=== PATIENT | male | born 1960 | race Caucasian/White ===

== ENCOUNTER 2020-10-09 00:35 | Outpatient (CLI) | payer OTHER, SELFPAY ==
[2020-10-09 19:42] LABS: SARS-CoV-2 RNA PCR Negative
== END 2020-10-09 00:36 | disposition home or self-care (01) ==
LOC: ANHCOVIDDT 00:36
PROVIDERS: PCP Internal Medicine; Visit Provider Internal Medicine Gastroenterology
DX: Z01.812 Encounter for preprocedural laboratory examination (principal); Z20.822 Contact with and (suspected) exposure to COVID-19
CPT/HCPCS: C9803; U0003

== ENCOUNTER 2020-10-12 00:13 | Day surgery (SDC) | payer OTHER, SELFPAY ==
[2020-09-26 10:29] VITALS: BMI 32.5
[2020-10-12 06:23] VITALS: BP 128/71; PULSE 52; RESP 20; TEMP 36.2; O2SAT 99
[2020-10-12] MEDS: LACTATED RINGERS 1,000 ML 150 ML IV CONT (06:34)
--- NOTE | 2020-10-12 07:19 | WPDANESEPPF ---
Anes - Initial Pre Proc Eval Procedure: Operation Date: 10/12/20 07:30 Proposed Procedures p Screening Colonoscopy - Victor Manuel Chacon MD Date/Time: 10/12/20 07:19 Surgeon: Victor Manuel Chacon MD Pre Op Diagnosis: neoplasm screening Patient Data Age: 60 Gender: M Height: 5 ft 11 in Weight: 106.3 kg Last Vital Signs Temp 97.1 F L 10/12/20 06:23 Pulse 52 L 10/12/20 06:23 Resp 20 10/12/20 06:23 BP 128/71 10/12/20 06:23 Pulse Ox 99 10/12/20 06:23 Allergies Allergy/AdvReac Type Severity Reaction Status Date / Time No Known Allergies Allergy Unverified 10/12/20 06:21 Home Medications Medication Instructions Recorded Confirmed Type azelastine 137 mcg (0.1 %) nasal 2 spray INTRANASAL Q12H PRN ml 07/25/20 09/26/20 History spray aerosol fluticasone propionate 50 2 spray INTRANASAL DAILY PRN 07/25/20 09/26/20 History mcg/actuation nasal spray,suspension irbesartan 150 mg tablet 150 mg PO DAILY 07/25/20 09/26/20 History levothyroxine 125 mcg tablet 125 mcg PO DAILY 07/25/20 09/26/20 History cetirizine 10 mg PO DAILY 09/26/20 09/26/20 History multivitamin [One A Day Vitamin] 1 tablet PO DAILY 09/26/20 09/26/20 History Patient hx anesthesia problems: none Family hx anesthesia problems: none PMFSH Past Medical History Medical History (Updated 10/12/20 @ 07:19 by Robert Calvert MD) Asthma GERD (gastroesophageal reflux disease) HTN (hypertension) Hypothyroid Obesity (BMI 35.0-39.9 without comorbidity) TRIINTY on CPAP Surgical History Surgical History (Updated 07/25/20 @ 07:59 by Nan Camejo) History of surgery on arm Left arm Family History Family History (Updated 07/25/20 @ 08:00 by Nan Camejo) Sibling Family history of migraine headaches Hypertension Mother Cancer Father Cancer Grandparent Cancer Other Diabetes mellitus Family history of malignant neoplasm Social History Social History (Updated 07/25/20 @ 08:01 by Nan Camejo) Smoking status: Never smoker Smoking end date: 10/05/76 Alcohol intake: current Drinks per week: 4 Alcohol use details: SHOTS Substance use: never Substance use type: does not use Living arrangements: with family Spiritual care concerns: No Anes - Eval Final PreProcedure Day of Procedure 10/12/20 07:19 Patient weight: obese Heart: regular rate and rhythm Lungs: clear to auscultation Airway: Mallampati scale class II Neurological: alert and oriented Last oral intake: >/= 8 hours ASA classification: III Emergent: no Anesthetic plan: proceed Anesthesia type and monitoring: general GIVS and standard monitoring Informed Consent: The patient's anesthetic plan and its attendant risks and benefits were discussed with the patient/family/POA. Questions were solicited and answers provided to the satisfaction of the patient/family/POA.
--- NOTE | 2020-10-12 07:24 | PM.HPGS ---
History of Present Illness History of Present Illness Consent: Risks, benefits, and alternatives have been discussed and questions answered. Patient agrees to proceed with procedure. Chief complaint: neoplasm screening Narrative: Luis Felipe Garcias is a 60 year old male here for first screening colonoscopy Review of Systems Constitutional: Constitutional: Denies headache(s) and Denies weakness Eyes: Eyes: Denies blurry vision ENT: Reports Normal hearing present, Denies headache(s) and Denies neck pain Cardiovascular: Cardiovascular: Denies chest pain and Denies dyspnea Respiratory: Respiratory: Denies dyspnea Gastrointestinal: Gastrointestinal: Reports no additional gastrointestinal complaints Genitourinary: Genitourinary: Denies dysuria Musculoskeletal: Musculoskeletal: Denies neck pain Integumentary/Breasts: Skin/Breast: Denies dry skin Neurologic: Reports Normal hearing present, Denies headache(s) and Denies weakness Psychiatric: Psychiatric: Denies anxiety Endocrine: Endocrine: Denies change in body appearance Hematologic/Lymphatic: Hematologic/Lymphatic: Denies easy bleeding Allergic/Immunologic: Allergic/Immunologic: Denies urticaria PMFSH Past Medical History Medical History (Updated 10/12/20 @ 07:19 by Robert Calvert MD) Asthma GERD (gastroesophageal reflux disease) HTN (hypertension) Hypothyroid Obesity (BMI 35.0-39.9 without comorbidity) TRINITY on CPAP Surgical History Surgical History (Updated 07/25/20 @ 07:59 by Nan Camejo) History of surgery on arm Left arm Family History Family History (Updated 07/25/20 @ 08:00 by Nan Camejo) Sibling Family history of migraine headaches Hypertension Mother Cancer Father Cancer Grandparent Cancer Other Diabetes mellitus Family history of malignant neoplasm Social History Social History (Updated 07/25/20 @ 08:01 by Nan Camejo) Smoking status: Never smoker Smoking end date: 10/05/76 Alcohol intake: current Drinks per week: 4 Alcohol use details: SHOTS Substance use: never Substance use type: does not use Living arrangements: with family Spiritual care concerns: No Meds Home Medications and Allergies Home Medications Medication Instructions Recorded Confirmed Type azelastine 137 mcg (0.1 %) nasal 2 spray INTRANASAL Q12H PRN ml 07/25/20 09/26/20 History spray aerosol fluticasone propionate 50 2 spray INTRANASAL DAILY PRN 07/25/20 09/26/20 History mcg/actuation nasal spray,suspension irbesartan 150 mg tablet 150 mg PO DAILY 07/25/20 09/26/20 History levothyroxine 125 mcg tablet 125 mcg PO DAILY 07/25/20 09/26/20 History cetirizine 10 mg PO DAILY 09/26/20 09/26/20 History multivitamin [One A Day Vitamin] 1 tablet PO DAILY 09/26/20 09/26/20 History Allergies Allergy/AdvReac Type Severity Reaction Status Date / Time No Known Allergies Allergy Unverified 10/12/20 06:21 Vital Signs Vital Signs - 24 hr 10/12/20 06:23 Temperature 97.1 F L Pulse Rate 52 L Respiratory Rate 20 Blood Pressure 128/71 Pulse Oximetry 99 Exam Const: General: comfortable and no acute distress HENMT: General nose exam: Normal nares present Eyes: General: appearance normal, both eyes and all related structures Neck: Neck: no JVD Resp: Auscultation: clear to auscultation bilaterally Cardio: Rate: regular rate Rhythm: regular rhythm GI: Inspection: non-distended GI Palp: Yes Soft to palpation Skin: General skin exam: normal color Neuro: General: gait normal Speech: normal speech Extrem: General: normal to inspection Psych: Mental Status: mental status grossly normal Assessment and Plan Assessment and plan (1) Screening for colon cancer: Code(s): Z12.11 - Encounter for screening for malignant neoplasm of colon Status: Acute Assessment and Plan: will proceed with colonoscopy
[2020-10-12 07:42] VITALS: BP 110/66; PULSE 55; RESP 22; O2SAT 98
[2020-10-12 07:52] VITALS: BP 115/69; PULSE 57; RESP 20; O2SAT 97
[2020-10-12 08:02] VITALS: BP 125/77; PULSE 52; RESP 18; O2SAT 100
== END 2020-10-12 08:10 | disposition home or self-care (01) ==
PROVIDERS: PCP Internal Medicine; Visit Provider Internal Medicine Gastroenterology
PROC: 0DJD8ZZ Inspection of Lower Intestinal Tract, Via Natural or Artificial Opening Endoscopic (ICD-10-PCS; CPT 45378; principal; 2020-10-12 07:30)
DX: Z12.11 Encounter for screening for malignant neoplasm of colon (principal); D12.0 Benign neoplasm of cecum; K57.30 Diverticulosis of large intestine without perforation or abscess without bleeding; K64.8 Other hemorrhoids; J45.909 Unspecified asthma, uncomplicated; K21.9 Gastro-esophageal reflux disease without esophagitis; I10 Essential (primary) hypertension; E03.9 Hypothyroidism, unspecified; G47.33 Obstructive sleep apnea (adult) (pediatric); E66.9 Obesity, unspecified; Z68.32 Body mass index [BMI] 32.0-32.9, adult
CPT/HCPCS: 45385; 88305; C9803; J2704; J7120; U0003

== ENCOUNTER 2023-06-09 08:07 | Outpatient (CLI) | payer OTHER, MEDICARE, SELFPAY ==
[2023-06-09 20:06] LABS: Alanine Aminotransferase 40 U/L (6-50); Albumin Level 4.2 g/dL (3.5-5.1); Alkaline Phosphatase 57 U/L (38-126); Anion Gap 4 mmol/L (8-16); Aspartate Amino Transferase 48 U/L (17-59); Bilirubin,Total 0.6 mg/dL (0.2-1.3); Blood Urea Nitrogen 17 mg/dL (9-20); Calcium 9.1 mg/dL (8.4-10.2); Carbon Dioxide 32 mmol/L (22-30); Chloride 101 mmol/L (98-107); Cholesterol 181 mg/dL (0-200); Estimated Glomerular Filt Rate > 60; Glucose 88 mg/dL (65-110); HDL Direct 43 mg/dL; Potassium 3.8 mmol/L (3.4-5.0); Sodium 137 mmol/L (137-145); Triglycerides 144 mg/dL (<150)
[2023-06-09 20:17] LABS: LDL Cholesterol Direct 103 mg/dL
== END 2023-06-09 08:08 | disposition home or self-care (01) ==
PROVIDERS: PCP Internal Medicine; Visit Provider Nurse Practitioner
DX: E03.9 Hypothyroidism, unspecified (principal); Z13.220 Encounter for screening for lipoid disorders; I10 Essential (primary) hypertension
CPT/HCPCS: 36415; 80053; 80061; 84443

== ENCOUNTER 2023-12-09 08:06 | Outpatient (CLI) | payer MEDICARE, SELFPAY ==
[2023-12-09 15:23] LABS: Kit Draw Collected
== END 2023-12-09 08:07 | disposition home or self-care (01) ==
LOC: ANHGOSHLAB 08:07
PROVIDERS: PCP Internal Medicine; Visit Provider Clinical Nurse Specialist
DX: Z12.5 Encounter for screening for malignant neoplasm of prostate (principal); I10 Essential (primary) hypertension; E03.9 Hypothyroidism, unspecified; Z13.228 Encounter for screening for other metabolic disorders
CPT/HCPCS: 36415

== ENCOUNTER 2023-12-28 08:59 | Outpatient (CLI) | payer MEDICARE, OTHER, SELFPAY ==
--- NOTE | 2023-12-28 09:22 | ECHO_ITS ---
Patient Info Name: Luis Felipe Garcias Age: 63 years : 1960 Gender: Male Ht: 68 in Wt: 240 lbs BSA: 2.33 m2 HR: 60 bpm BP: 138 / 79 mmHg Technical Quality: Fair Exam Date: 12/28/2023 9:24 AM Exam Location: [facility] Patient Status: Outpatient Admit Date: 12/28/2023 Staff Ordering Physician: Valeria Warren [employer] Architect: Mikayla Victoria RDCS Attending Provider: Valeria Warren Referring Physician: Briana IRAHETA; Exam Type: CA echo doppler color flow Study Info Indications I10 - Essential (primary) hypertension Complete two-dimensional, color flow and Doppler transthoracic echocardiogram is performed. Summary 1. Complete two-dimensional, color flow and Doppler transthoracic echocardiogram is performed. 2. Left ventricular chamber dimension is normal. 3. Left ventricular systolic function is normal, estimated at 60-65%. 4. The left ventricular diastolic function is grade I diastolic dysfunction. 5. E/e' 7 is not elevated. 6. No pulmonary hypertension, estimated pulmonary arterial systolic pressure is 21 mmHg. Left Ventricle E/e' 7 is not elevated. Left ventricular chamber dimension is normal. Left ventricular systolic function is normal, estimated at 60-65%. The left ventricular diastolic function is grade I diastolic dysfunction. Right Ventricle Right ventricular chamber dimension is normal. Right ventricular systolic function is normal. Left Atria Left atrial chamber dimension is normal. Right Atria Right atrial chamber dimension is normal. Aortic Valve The aortic valve is trileaflet. There is no aortic valve stenosis. There is no aortic valve regurgitation. Pulmonic Valve There is no pulmonic regurgitation. Mitral Valve There is no mitral valve stenosis. There is no mitral valve regurgitation. Tricuspid Valve There is no tricuspid valve regurgitation. No pulmonary hypertension, estimated pulmonary arterial systolic pressure is 21 mmHg. Pericardium/Pleural There is no pericardial effusion. Inferior Vena Cava Normal inferior vena cava with >50% collapse upon inspiration consistent with normal right atrial pressure, 5 mmHg. Aorta The aortic root size at the sinus of Valsalva is normal. Left Ventricular Outflow Tract Name Value Normal LVOT 2D LVOT Diameter 2.0 cm LVOT Doppler LVOT Peak Gradient 5 mmHg LVOT Mean Gradient 3 mmHg LVOT VTI 23 cm LVOT VTI/AV VTI Ratio 0.8 LVOT Stroke Volume 72 ml LVOT CO 4.4 l/min LVOT CI 1.9 l/min/m2 Pulmonic Valve Name Value Normal RVOT Doppler RVOT Peak Gradient 4 mmHg PV Doppler PV Peak Gradient 16 mmHg Mitral Valve
== END 2023-12-28 09:00 | disposition home or self-care (01) ==
LOC: ANHCARD 09:00
PROVIDERS: PCP Internal Medicine; Visit Provider Clinical Nurse Specialist
DX: I10 Essential (primary) hypertension (principal)
CPT/HCPCS: 93306

== ENCOUNTER 2024-01-01 12:08 | Emergency (ER) | payer MEDICARE, OTHER, SELFPAY ==
[2024-01-01 12:16] VITALS: BP 144/89; PULSE 61; RESP 16; TEMP 37.2; O2SAT 100
--- NOTE | 2024-01-01 12:29 | ED.GENADULT ---
HPI - General Adult General Chief complaint: Extremity Injury, Lower Stated complaint: left knee pain Time Seen by Provider: 01/01/24 12:29 Source: patient, RN notes reviewed and old records reviewed Mode of arrival: ambulatory Limitations: no limitations History of Present Illness HPI narrative: 63-year-old male to [facility] with complaint left knee pain worse with movement or weight-bearing 2 days. Patient endorses he was squatting and chopping wood 2 days ago believes he may have injured knee when attempting to stand. patient denies acute pain at that time; reports pain began through the night and kept him from sleeping. Patient denies any prior injury or surgery. Patient been treating at home with ice and knee brace with some relief. Patient able to ambulate with slow but steady gait. Patient denies numbness, pain, swelling or tingling to left lower leg/ankle/foot. Related Data Home Medications Medication Instructions Recorded Confirmed cetirizine 10 mg tablet 10 mg PO DAILY 09/26/20 01/01/24 multivitamin 1 tablet PO DAILY 09/26/20 01/01/24 omega-3 fatty acids 1,000 mg 1,000 mg PO DAILY 01/22/21 01/01/24 capsule (Fish Oil Concentrate) hydroxychloroquine 100 mg tablet 200 mg PO BID 12/10/22 01/01/24 Allergies Allergy/AdvReac Type Severity Reaction Status Date / Time No Known Allergies Allergy Verified 01/01/24 12:17 Review of Systems Review of Systems: All systems reviewed & are unremarkable except as noted in HPI and below Constitutional: Constitutional: Reports as per HPI, Denies fever(s) and Denies weakness Eyes: Eyes: Reports no additional eye complaints ENT: Reports system reviewed and no additional complaints, except as documented Cardiovascular: Cardiovascular: Reports no additional cardiovascular complaints, Denies chest pain and Denies dyspnea Respiratory: Respiratory: Reports no additional respiratory complaints, Denies cough and Denies dyspnea Musculoskeletal: Musculoskeletal: Reports as per HPI, Reports arthralgias ( Left knee), Reports limited range of motion ( left knee), Denies muscle weakness, Denies numbness and Denies tingling Neurologic: Reports as per HPI, Reports abnormal gait ( due to left knee pain), Denies tingling and Denies weakness Psychiatric: Psychiatric: Reports no additional psychiatric complaints PMFSH Past Medical History Medical History Asthma GERD (gastroesophageal reflux disease) HTN (hypertension) Hypothyroid Obesity (BMI 35.0-39.9 without comorbidity) TRINITY on CPAP Surgical History Surgical History History of surgery on arm Left arm Family History Family History Sibling Family history of migraine headaches Hypertension Mother Cancer Father Cancer Grandparent Cancer Other Diabetes mellitus Family history of malignant neoplasm Social History Social History Smoking status: Never smoker Smoking end date: 10/05/76 Alcohol intake: current Drinks per week: 4 Alcohol use details: SHOTS Substance use: never Substance use type: does not use Lack of Transportation: No Lack of Food: Never True Current Housing: I Have Housing Concerned About Future Housing: No Difficulty Paying Gas/Electric Bills: No Difficulty Paying for Meds: No Currently Unemployed: No Education: High School Diploma/GED Difficulty w/ Childcare or Family Care: No Living arrangements: with family Occupation/Education: retired Gender identity (if verbalized by the patient): Male Spiritual care concerns: No Agree to blood products: Yes Comments At the time of my signature, I reviewed and agree with the nursing past medical, surgical, social, and family history. There is no relevant family hist
== END 2024-01-01 12:54 | disposition home or self-care (01) ==
PROVIDERS: Emergency Provider Nurse Practitioner Family; PCP Internal Medicine
DX: S83.92XA Sprain of unspecified site of left knee, initial encounter (principal); X58.XXXA Exposure to other specified factors, initial encounter; J45.909 Unspecified asthma, uncomplicated; K21.9 Gastro-esophageal reflux disease without esophagitis; I10 Essential (primary) hypertension; E03.9 Hypothyroidism, unspecified; E66.8 Other obesity; Z68.33 Body mass index [BMI] 33.0-33.9, adult; G47.33 Obstructive sleep apnea (adult) (pediatric); Z87.891 Personal history of nicotine dependence
CPT/HCPCS: 99212; G0463